=== PATIENT | female | born 1970 | race Two or more races ===

== ENCOUNTER → 2017-04-17 | Outpatient (CLI) | payer OTHER ==
--- NOTE | ~2017-04-17 | MY29 ---
[facility] A Service of [facility] RADIOLOGY TEXT RESULTS PATIENT: TRUNG PRICE LOCATION: [facility] : 70 UNIT #: [id number] AGE: [address]: JOANNE ROJO APRN SEX: F ORDER DR: [id number] [facility] [address] [place], [place] [address] [id number] O MR#: [id number] Acc #: [id number] NAME: TRUNG PRICE : 1970 SEX: F STUDY DATE/TIME: 04/17/2017 9:43 UNIT: [facility] ROOM: STUDY DESCRIPTION: [facility] SCREENING W/ CAD BILAT Attending Physician: Dheeraj Rojo M.D. Referring Physician: Dheeraj Rojo M.D. Ordering Physician: Dheeraj Rojo M.D. Primary Care Physician: Jeremy Garcia M.D. MEDICAL IMAGING REPORT This report is preliminary unless electronic signature is present EXAM Bilateral digital screening mammogram with CAD 04/17/2017 INDICATION 46-year-old female for routine screening. No reported problems. Family history of breast cancer in the patient's mother at 69. Personal history of uterine cancer. No prior breast surgery. TECHNIQUE CC and MLO views of the breasts were obtained and reviewed with an FDA-approved CAD device. COMPARISON 01/15/2016, 08/12/2014. FINDINGS Breast parenchyma is composed of scattered fibroglandular densities. The pattern is unchanged. There is no new dominant nodule, mass or suspicious cluster of microcalcifications. IMPRESSION Negative screening mammogram. One-year followup recommended. Patients over the age of 40 are entered into a reminder system with target due date for the next mammogram. A result letter will also be sent to the patient. BIRADS: 1 Negative Dictated by... Narinder New M.D. [facility] A Service of [facility] RADIOLOGY TEXT RESULTS PATIENT: TRUNG PRICE LOCATION: [facility] : 70 UNIT #: [id number] AGE: [address]: JOANNE ROJO APRN SEX: F ORDER DR: THIS IS AN ELECTRONICALLY VERIFIED REPORT Narinder New M.D. at 04/17/2017 4:01 PM ANGELA/dread TD: 04/17/2017 12:13 JOB #: [id number] MEDICAL IMAGING REPORT Page 1 of 1 COPY
== END | disposition home or self-care (01) ==
LOC: CWCC 09:15
DX: Z12.31 Encounter for screening mammogram for malignant neoplasm of breast (principal); Z80.3 Family history of malignant neoplasm of breast; Z85.42 Personal history of malignant neoplasm of other parts of uterus
CPT/HCPCS: G0202